=== PATIENT | male | born 1955 | race African-American/Black ===

== ENCOUNTER 2016-04-28 23:24 | Inpatient (IN) | payer MEDICARE, MEDICAID ==
[~2016-04-28] VITALS: Ht 185.4 cm; Wt 99.2 kg
[~2016-04-28 23:24] MED LIST: 1-ME1LIQ PO; HYDR-3533 PO
[2016-04-28] MEDS ORDERED: ASPIRIN 81 MG CHEW TAB PO ONE (23:45)
[2016-04-28] MEDS ORDERED: SODIUM CHLORIDE 0.9% FLUSH 5 ML FLUSH IVF PRN (23:45)
--- NOTE | 2016-04-28 23:46 | PD ---
HPI Chief Complaint: chest pain Time Seen by Provider: 23:41 Travel History International Travel<30 days: No Contact w/Intl Traveler<30days: No Traveled to known affect area: No History of Present Illness HPI 60-year-old male presents to the emergency department by private transportation the care of his spouse for evaluation of left-sided chest pain with radiation into the left shoulder since 1 PM today. Patient was seen by his primary care provider earlier in the day because of dental pain and was doing a prescription for Naprosyn. Patient had ongoing discomfort of the tooth and took aspirin around 9 PM. Patient is unable to identify specific exacerbating or alleviating factors for his dental pain or for his chest pain. Patient states that he thinks she exercised too much yesterday because his chest wall is mildly tender to palpation. Patient's had no fever chills. Patient does have history of hypertension. Patient denies personal history of tobacco use dyslipidemia or diabetes. Patient rates pain 6/10 in intensity. Patient's had no associated referred neck jaw back arm or abdomen pain also no associated shortness of breath sweats nausea or vomiting. Patient denies any laboratory pain or swelling. No personal history or family history of clotting disorder. No recent long distance travel protracted bedrest her surgical procedure. Patient has had chest pain the past but states not the same. No report of previous cardiac evaluation with stress test or cardiac catheterization. Patient states because of persistent discomfort he decided to come and get checked out. PFSH Past Medical History Narrative Medical Hypertension immunizations current no tobacco use nursing notes reviewed Cardiovascular Problems: Yes Diminished Hearing: No Hypertension: Yes Immunizations Current: Yes Social History Alcohol Use: No Tobacco Use: No (QUIT 2003) Substance Use: No Allergies-Medications (Allergen,Severity, Reaction): Coded Allergies: Shellfish (Verified Allergy, Severe, Anaphylaxis, 04/29/16) Reported Meds & Prescriptions Reported Meds & Active Scripts Active Reported Goodys Extra Strength Powder (Bhxhqnp-Wgmttiorjjydx-Tgjhfqmr Powder) 260-520- 32.5 Mg Powderpack 1 Pkt PO DAILY PRN Review of Systems Except as stated in HPI: all other systems reviewed are Neg General / Constitutional: No: Fever, Chills Eyes: No: Visual changes HENT: Positive: Dental Difficulties Cardiovascular: Positive: Chest Pain or Discomfort, No: Diaphoresis, Syncope Respiratory: No: Cough, Shortness of Breath, Wheezing Gastrointestinal: No: Nausea, Vomiting, Abdominal Pain Genitourinary: No: Flank Pain Musculoskeletal: No: Myalgias, Arthralgias Neurologic: No: Weakness Psychiatric: No: Anxiety Endocrine: No: Heat Intolerance Hematologic/Lymphatic: No: Easy Bruising Physical Exam Narrative GENERAL: Well-developed well-nourished male in no acute distress no respiratory distress SKIN: Warm and dry. HEAD: Atraumatic. Normocephalic. EYES: Pupils equal and round. No scleral icterus. No injection or drainage. ENT: No nasal bleeding or discharge. Mucous membranes pink and moist. #9 dentition with erosion of enamel and dental Jovita without gingival edema or fluctuance. Airway is patent. NECK: Trachea midline. No JVD. Supple, no meningismus. CARDIOVASCULAR: Regular rate and rhythm. Chest wall: Tender to palpation over the left anterior chest wall reproduces pain of presentation. RESPIRATORY: No accessory muscle use. Clear to auscultation. Breath sounds equal bilaterally. GASTROINTESTINAL: Abdomen soft, non-tender, nondistended. Hepatic and splenic margins not palpable. MUSCULOSKELETAL: Extremities without clubbing, cyanosis, or edema. No obvious deformities. Bilateral radial and dorsalis pedis pulses 2+ to palpation. NEUROLOGICAL: Awake and alert. No obvious cranial nerve deficits. Motor grossly within normal limits. Five out of 5 muscle strength in the arms and legs. Normal speech. PSYCHIATRIC: Appropriate mood and affect; insight and judgment normal. Data Data Last Documented VS Vital Signs Date Time Temp Pulse Resp B/P Pulse Ox O2 Delivery O2 Flow Rate FiO2 04/29/16 00:04 61 18 98 Room Air 04/28/16 23:59 98.4 168/81 Orders Electrocardiogram (04/28/16 23:41) Basic Metabolic Panel (Bmp) (04/28/16 23:41) Ckmb (Isoenzyme) Profile (04/28/16 23:41) Complete Blood Count With Diff (04/28/16 23:41) Magnesium (Mg) (04/28/16 23:41) Prothrombin Time / Inr (Pt) (04/28/16 23:41) Act Partial Throm Time (Ptt) (04/28/16 23:41) Troponin I (04/28/16 23:41) Chest, Single Ap (04/28/16 23:41) Ecg Monitoring (04/28/16 23:41) Bilateral Bp Monitoring (04/28/16 23:41) Iv Access Insert/Monitor (04/28/16 23:41) Oximetry (04/28/16 23:41) Oxygen Administration (04/28/16 23:41) Aspirin Chew (Aspirin Chew) (04/28/16 23:45) Sodium Chloride 0.9% Flush (Ns Flush) (04/28/16 23:45) Nitroglycerin Sl (Nitrostat Sl) (04/28/16 23:45) Sodium Chlor 0.9% 1000 Ml Inj (Ns 1000 M (04/28/16 23:45) CKMB (04/28/16 23:55) CKMB% (04/28/16 23:55) Sodium Chlor 0.9% 1000 Ml Inj (Ns 1000 M (04/29/16 00:45) Urinalysis - C+S If Indicated (04/29/16 00:34) Potassium Chloride (Kcl) (04/29/16 00:45) Acetaminophen (Tylenol) (04/29/16 01:00) Ondansetron Inj (Zofran Inj) (04/29/16 01:00) Morphine Inj (Morphine Inj) (04/29/16 01:00) Admit Order (Ed Use Only) (04/29/16 ) ^ Saline Lock (04/29/16 01:10) Resp Oxygen Remy C Titrat 1-4 L (04/29/16 ) ^ Notify Dr: Other (04/29/16 01:10) Sodium Chloride 0.9% Flush (Ns Flush) (04/29/16 09:00) Sodium Chloride 0.9% Flush (Ns Flush) (04/29/16 01:15) Place In Observation (04/29/16 ) Vital Signs (Adult) Q4H (04/29/16 01:09) Activity Oob With Assistance (04/29/16 01:09) Flour Worker / Telemetry .CONTINUOUS (04/29/16 01:09) Diet Heart Healthy (04/29/16 Breakfast) Sodium Chloride 0.9% Flush (Ns Flush) (04/29/16 01:15) Sodium Chloride 0.9% Flush (Ns Flush) (04/29/16 09:00) Creatine Kinase (Cpk) (04/29/16 06:00) Creatine Kinase (Cpk) (04/29/16 12:00) Troponin I (04/29/16 06:00) Troponin I (04/29/16 12:00) Electrocardiogram (04/29/16 06:00) Electrocardiogram (04/29/16 12:00) Naloxone Inj (Narcan Inj) (04/29/16 01:15) Labs Laboratory Tests Test 04/28/16 04/29/16 23:55 00:40 White Blood Count 5.6 TH/MM3 Red Blood Count 4.53 MIL/MM3 Hemoglobin 13.0 GM/DL Hematocrit 39.4 % Mean Corpuscular Volume 87.1 FL Mean Corpuscular Hemoglobin 28.8 PG Mean Corpuscular Hemoglobin 33.0 % Concent Red Cell Distribution Width 13.4 % Platelet Count 294 TH/MM3 Mean Platelet Volume 7.0 FL Neutrophils (%) (Auto) 35.1 % Lymphocytes (%) (Auto) 48.8 % Monocytes (%) (Auto) 9.6 % Eosinophils (%) (Auto) 5.7 % Basophils (%) (Auto) 0.8 % Neutrophils # (Auto) 1.9 TH/MM3 Lymphocytes # (Auto) 2.9 TH/MM3 Monocytes # (Auto) 0.5 TH/MM3 Eosinophils # (Auto) 0.3 TH/MM3 Basophils # (Auto) 0.0 TH/MM3 CBC Comment DIFF FINAL Differential Comment Prothrombin Time 11.9 SEC Prothromb Time International 1.1 RATIO Ratio Activated Partial 30.6 SEC Thromboplast Time Sodium Level 142 MEQ/L Potassium Level 3.2 MEQ/L Chloride Level 104 MEQ/L Carbon Dioxide Level 30.9 MEQ/L Anion Gap 7 MEQ/L Blood Urea Nitrogen 14 MG/DL Creatinine 1.20 MG/DL Estimat Glomerular Filtration 75 ML/MIN Rate Random Glucose 97 MG/DL Calcium Level 8.7 MG/DL Magnesium Level 2.2 MG/DL Total Creatine Kinase 1348 U/L Creatine Kinase MB 6.1 NG/ML Creatine Kinase MB % 0.5 % Troponin I LESS THAN 0.02 NG/ML Urine Color STRAW Urine Turbidity CLEAR Urine pH 5.5 Urine Specific [place] 1.006 Urine Protein NEG mg/dL Urine Glucose (UA) NEG mg/dL Urine Ketones NEG mg/dL Urine Occult Blood NEG Urine Nitrite NEG Urine Bilirubin NEG Urine Leukocyte Esterase NEG Urine RBC 0-2 /hpf Urine WBC 0-2 /hpf Urine Squamous Epithelial 0-5 /hpf Cells Urine Bacteria NONE /hpf Microscopic Urinalysis Comment CULT NOT INDICATED MDM Medical Decision Making Medical Screen Exam Complete: Yes Emergency Medical Condition: Yes Medical Record Reviewed: Yes Interpretation(s) EKG: sinus bradycardia rate [address] elevation or injury pattern change noted QS septally in V1 V2 age-indeterminate ck: 1348, elevated troponin I: less than 0.02, not elevated bmp: hypokalemia; wnl bun/cr cbc; lymphocytosis cxr: cardiomegaly ua: wnl Last Impressions Chest X-Ray 04/28/16 2341 Signed Impressions: Service Date/Time: Thursday, April 28, 2016 23:59 - CONCLUSION: Cardiomegaly. No acute cardiopulmonary disease. 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 EKG performed which reveals no acute ST elevation or injury pattern Patient noted some improvement of symptoms after sublingual nitroglycerin; although discomfort persists IV fluids administered; troponin I less than 0.02, not elevated however total CK is elevated at 1348 concerning for rhabdomyolysis CK-MB percent 0.5% not elevated; patient identified to have hypokalemia potassium given his oral replacement Patient's case discussed with on-call medicine for observation admission for chest pain for serial cardiac enzymes in view of cardiac risk factors male, age 60, hypertension as well as further evaluation of with serial CK; presently urinalysis is normal without evidence of blood without rbc's deferred urine myoglobin check. Patient aware plan for observation admission. Physician Communication Physician Communication discussed with Dr Posada --obs to her service Diagnosis Primary Impression: Chest pain Qualified Code: R07.89 - Other chest pain Additional Impressions: Rhabdomyolysis Qualified Code: M62.82 - Non-traumatic rhabdomyolysis Hypokalemia Dentalgia Carmelita Fischer MD Apr 28, 2016 23:46
[2016-04-28 23:59] VITALS: BP 168/81; PULSE 61; RESP 18; TEMP 98.4; O2SAT 98
[2016-04-29] VITALS (14 sets, daily range): BP systolic 130–167; BP diastolic 70–96; PULSE 53–61; RESP 16–20; TEMP 96–98.3; O2SAT 92–96
[2016-04-29 00:04] LABS: AUTOMATED NEUTROPHIL # 1.9 TH/MM3 (1.8-7.7); BASOPHIL % 0.8 % (0.0-2.0); EOSINOPHIL # 0.3 TH/MM3 (0-0.4); EOSINOPHIL % 5.7 % (0.0-4.0); HEMATOCRIT 39.4 % (39.0-51.0); LYMPH % 48.8 % (9.0-44.0); LYMPHOCYTE # 2.9 TH/MM3 (1.0-4.8); MEAN CELL VOLUME 87.1 FL (80.0-100.0); MEAN CORPUSCULAR HEMOGLOBIN 28.8 PG (27.0-34.0); MONO % 9.6 % (0.0-8.0); NEUT % 35.1 % (16.0-70.0); PLATELET COUNT 294 TH/MM3 (150-450); RED BLOOD COUNT 4.53 MIL/MM3 (4.50-5.90); RED CELL DISTRIBUTION WIDTH 13.4 % (11.6-17.2); WHITE BLOOD COUNT 5.6 TH/MM3 (4.0-11.0)
[2016-04-29 00:05] LABS: HEMO FLAGS DIFF FINAL
[2016-04-29] MEDS ORDERED: ASPI1POW6 PO (00:09)
--- NOTE | 2016-04-29 00:10 | RADHPO ---
EXAM DATE/TIME: 04/28/2016 23:59 [facility] COMPARISON: CHEST SINGLE AP, January 08, 2016, 13:13. INDICATIONS : Chest pain. MEDICAL HISTORY : None. SURGICAL HISTORY : None. ENCOUNTER: Initial ACUITY: 1 day PAIN SCORE: 7/10 LOCATION: Bilateral chest FINDINGS: The cardiac silhouette is enlarged in transverse diameter. The lungs are free of acute parenchymal op acity. No effusions are identified. Osseous structures are intact. CONCLUSION: Cardiomegaly. No acute cardiopulmonary disease. Michael Eddy MD on April 29, 2016 at 0:08 Board Certified Radiologist. This report was verified electronically.
[2016-04-29 00:11] LABS: CHLORIDE 104 MEQ/L (98-107); POTASSIUM 3.2 MEQ/L (3.5-5.1); SODIUM (NA) 142 MEQ/L (136-145)
[2016-04-29 00:14] LABS: ANION GAP 7 MEQ/L (5-15); BICARBONATE 30.9 MEQ/L (21.0-32.0); BLOOD UREA NITROGEN 14 MG/DL (7-18); MAGNESIUM 2.2 MG/DL (1.5-2.5)
[2016-04-29 00:16] LABS: APTT (PATIENT) 30.6 SEC (24.3-30.1); INTERNATIONAL NORMALIZED RATIO 1.1 RATIO; PROTHROMBIN TIME - PATIENT 11.9 SEC (9.8-11.6)
[2016-04-29 00:17] LABS: GLOMERULAR FILTRATION RATE 75 ML/MIN (>89)
[2016-04-29] MEDS: SODIUM CHLOR 0.9% 1000 ML INJ 1,000 ML IV SCH ×2 (00:24→02:00)
[2016-04-29] MEDS: NITROGLYCERIN 0.4 MG SL 25 TABS/BTL SL SCH ×3 (00:24→00:45)
[2016-04-29 00:32] LABS: CREATINE KINASE 1348 U/L (39-308)
[2016-04-29 00:44] LABS: CKMB 6.1 NG/ML (0.5-3.6)
[2016-04-29] MEDS ORDERED: POTASSIUM CHLORIDE 20 MEQ CONTROLLED RELEASE TAB PO ONE (00:45)
[2016-04-29] MEDS ORDERED: SODIUM CHLOR 0.9% 1000 ML INJ 1,000 ML IV ONE (00:45)
[2016-04-29 00:58] LABS: BLOOD, URINE NEG (NEG); GLUCOSE,URINE NEG (NEG); KETONE, URINE NEG (NEG); NITRITE,URINE NEG (NEG); PH, URINE 5.5 (5.0-8.5)
[2016-04-29] MEDS ORDERED: ACETAMINOPHEN 325 MG TAB PO ONE (01:00)
[2016-04-29] MEDS ORDERED: ONDANSETRON HCL 4 MG/2 ML VIAL IV PUSH ONE (01:00)
[2016-04-29] MEDS ORDERED: MORPHINE SULFATE 4 MG/ML INJ IV PUSH ONE ×2 (01:00→05:45)
[2016-04-29 01:09] LABS: COMMENT (UR) CULT NOT INDICATED; CULTURE IF INDICATED CULT NOT INDICATED; RBC, URINE 0-2 /hpf (0-3); SQUAMOUS EPITHELIAL CELL URINE 0-5 /hpf (0-5); URINE COLOR STRAW (YELLW/STRAW); WBC, URINE 0-2 /hpf (0-5)
[2016-04-29] MEDS ORDERED: NALOXONE HCL 0.4 MG/ML AMP IV PRN (01:15)
[2016-04-29] MEDS ORDERED: SODIUM CHLORIDE 0.9% FLUSH 5 ML FLUSH FLUSH PRN (01:15)
[2016-04-29] MEDS ORDERED: SODIUM CHLORIDE 0.9% FLUSH 5 ML FLUSH IVF PRN (01:15)
[2016-04-29 07:54] LABS: CREATINE KINASE 1079 U/L (39-308)
[2016-04-29 08:07] LABS: CKMB 4.8 NG/ML (0.5-3.6)
[2016-04-29] MEDS: SODIUM CHLORIDE 0.9% FLUSH 5 ML FLUSH FLUSH SCH ×2 (08:21→19:59)
[2016-04-29] MEDS ORDERED: SODIUM CHLORIDE 0.9% FLUSH 5 ML FLUSH IVF SCH (09:00)
--- NOTE | 2016-04-29 11:39 | HHI.HP ---
[facility] Service [place] [facility] Primary Care Physician Zach Montemayor MD Admission Diagnosis chest pain; rhabdomyolysis Diagnoses: (1) Rhabdomyolysis Diagnosis: Principal (2) Hypokalemia Diagnosis: Principal (3) Chest discomfort Diagnosis: Principal (4) Hypertension Diagnosis: Secondary Chief Complaint: Chest soreness Travel History International Travel<30 Days: No Contact w/Intl Traveler <30 Da: No Traveled to Known Affected Are: No History of Present Illness 60-year-old male with known history of hypertension, history of prostate cancer who presented to hospital because of chest discomfort, muscle soreness. Patient states that he went to the gym on and did upper body workout. Patient states that he overdid it and lifted too much in 1 day. He has not been going to the gym as frequent as he did so he decided to get a full workout in 1 day. He states that day after he started developing soreness in his chest , arms. The pain progressively got worse and last night he noticed his muscles are twitching in his chest and he got concerned so he came to the hospital for evaluation. Patient denies any radiation of pain to the neck, back, shoulder, arms. Denies any nausea, vomiting, diaphoresis, shortness of breath. Patient denies any previous cardiac workup. Does have history of hypertension and he takes a diuretic. Patient states that he still has muscle soreness in his chest , arms. Whenever he strains at his arms he does get a pulling sensation in his chest. Patient had workup done emergency department found to have rhabdomyolysis. Is recommended patient be observed in the hospital for further evaluation and management Review of Systems Constitutional: DENIES: Diaphoretic episodes, Fatigue, Fever, Weight gain, Weight loss, Chills, Dizziness, Change in appetite, Night Sweats Eyes: DENIES: Blurred vision, Diplopia, Eye inflammation, Eye pain, Vision loss , Double Vision Ears, nose, mouth, throat: DENIES: Vertigo, Nasal discharge, Throat pain, Ear Pain, Running Nose, Sinus Pain Respiratory: DENIES: Apneas, Cough, Snoring, Wheezing, Hemoptysis, Sputum production, Shortness of breath Cardiovascular: COMPLAINS OF: Chest pain, DENIES: Palpitations, Syncope, Dyspnea on Exertion, Lower Extremity Edema, Orthopnea Gastrointestinal: DENIES: Abdominal pain, Black stools, Bloody stools, Constipation, Diarrhea, Nausea, Vomiting, Difficulty Swallowing, Anorexia Musculoskeletal: COMPLAINS OF: Stiffness Neurologic: DENIES: Abnormal gait, Headache, Localized weakness, Paresthesias, Speech Problems, Tremor, Poor Balance Past Family Social History Past Medical History Hypertension History of prostate cancer Past Surgical History Prostate seed implantation Right femoral fracture repair with jani placement Left forearm fracture repair Reported Medications Reported Meds & Active Scripts Active Reported Goodys Extra Strength Powder (Blaaebk-Anlsevlovhcnw-Jgyhltsf Powder) 260-520- 32.5 Mg Powderpack 1 Pkt PO DAILY PRN Allergies: Coded Allergies: Shellfish (Verified Allergy, Severe, Anaphylaxis, 04/29/16) Family History Reviewed and unremarkable. Patient states that his mother is 89 years old and in good health Social History Patient quit smoking 15 years ago, prior to that he smoked one pack every 3 days since he was 16 years old. Patient denies any alcohol or illicit drugs Physical Exam Vital Signs Vital Signs Date Time Temp Pulse Resp B/P Pulse Ox O2 Delivery O2 Flow Rate FiO2 04/29/16 09:09 96.0 57 16 142/81 95 04/29/16 07:30 93 21 04/29/16 04:25 98.3 58 16 162/96 92 04/29/16 02:46 130/70 04/29/16 02:15 93 04/29/16 02:10 96.0 54 18 167/91 93 04/29/16 02:04 57 04/29/16 01:48 59 20 155/84 97 04/29/16 01:25 60 20 158/85 94 Room Air 157/80 04/29/16 00:04 61 18 98 Room Air 04/28/16 23:59 98.4 61 18 168/81 98 Room Air 04/28/16 23:59 98 Room Air Physical Exam GENERAL: Well-developed, well-nourished, in no acute distress. alert and orientated HEENT: Head is normocephalic without any lesions or masses noted. Facial features are symmetric. Eyes: Pupils equal round reactive to light. Extraocular muscles are intact. Conjunctivae were clear. Oropharyngeal: Pharynx without any erythema edema. Tongue is midline without deviation. Buccal mucosa is moist without any masses or lesions NECK: Supple without any masses. Trachea midline no deviation. No JVD, no bruits are appreciated CARDIAC: Regular rhythm, regular rate. S1/S2 are heard. No murmurs gallops or rubs. LUNGS: Clear to auscultation bilaterally. No wheeze, rhonchi or rales. No use of accessory muscles on inspiration or expiration. ABDOMEN: Soft, nontender. Nondistended. Bowel sounds heard in all 4 quadrants. No organomegaly or masses. Negative rebound, negative guarding EXTREMITIES: No edema, pulses are equal bilaterally. No cyanosis or clubbing NEUROLOGY: Mood and affect appear appropriate. Cranial nerves II through XII grossly intact. Muscle strength 5/5 in upper and lower extremities bilaterally. Deep tendon reflexes are 2+ in upper and lower extremities bilaterally. MUSCULOSKELETAL: Patient does have palpable muscle tenderness noted over anterior chest bilaterally, bilateral biceps, bilateral triceps. Laboratory Laboratory Tests Test 04/28/16 04/29/16 04/29/16 23:55 00:40 07:00 White Blood Count 5.6 Red Blood Count 4.53 Hemoglobin 13.0 Hematocrit 39.4 Mean Corpuscular Volume 87.1 Mean Corpuscular Hemoglobin 28.8 Mean Corpuscular Hemoglobin 33.0 Concent Red Cell Distribution Width 13.4 Platelet Count 294 Mean Platelet Volume 7.0 Neutrophils (%) (Auto) 35.1 Lymphocytes (%) (Auto) 48.8 Monocytes (%) (Auto) 9.6 Eosinophils (%) (Auto) 5.7 Basophils (%) (Auto) 0.8 Neutrophils # (Auto) 1.9 Lymphocytes # (Auto) 2.9 Monocytes # (Auto) 0.5 Eosinophils # (Auto) 0.3 Basophils # (Auto) 0.0 CBC Comment DIFF FINAL Differential Comment Prothrombin Time 11.9 Prothromb Time International 1.1 Ratio Activated Partial 30.6 Thromboplast Time Sodium Level 142 Potassium Level 3.2 Chloride Level 104 Carbon Dioxide Level 30.9 Anion Gap 7 Blood Urea Nitrogen 14 Creatinine 1.20 Estimat Glomerular Filtration 75 Rate Random Glucose 97 Calcium Level 8.7 Magnesium Level 2.2 Total Creatine Kinase 1348 1079 Creatine Kinase MB 6.1 4.8 Creatine Kinase MB % 0.5 0.4 Troponin I LESS THAN 0.02 LESS THAN 0.02 Urine Color STRAW Urine Turbidity CLEAR Urine pH 5.5 Urine Specific [place] 1.006 Urine Protein NEG Urine Glucose (UA) NEG Urine Ketones NEG Urine Occult Blood NEG Urine Nitrite NEG Urine Bilirubin NEG Urine Leukocyte Esterase NEG Urine RBC 0-2 Urine WBC 0-2 Urine Squamous Epithelial 0-5 Cells Urine Bacteria NONE Microscopic Urinalysis Comment CULT NOT INDICATED Result Diagram: 04/28/16 2355 04/28/16 2355 Imaging Last Impressions Chest X-Ray 04/28/16 2341 Signed Impressions: Service Date/Time: Thursday, April 28, 2016 23:59 - CONCLUSION: Cardiomegaly. No acute cardiopulmonary disease. Michael Eddy MD Assessment and Plan Assessment and Plan Rhabdomyolysis: Patient presented with muscle soreness in the chest, arms after working out at the gym and overdoing it 2 days ago. Patient continued on IV fluids. Continue monitoring CPK. Chest discomfort: Described as muscle soreness and muscle twitching. Likely secondary to rhabdomyolysis, muscle destruction from working out, hypokalemia. Patient has been ruled out for any acute coronary event. Serial cardiac enzymes have remained negative. Serial EKGs shows sinus bradycardia with first- degree AV block without any changes. Hypertension: Patient's blood pressure borderline elevated. Patient has have bradycardia. Will add Norvasc 5 mg daily. Dental caries: start amoxicillin, see outpatient dentist. --DVT prevention: Low risk, early ambulation Written by Aubrey Ma PA-C, acting as scribe for Dr. Shafer on 04/29/16 at 1430. The documentation accurately reflects the work and decisions performed face-to- face by Dr. Shafer on 04/29/16 at 1430. Discharge Disposition Discharge home in stable condition Activity: ad pete Diet: Healthy heart diet Medication per medication reconciliation sheet. Follow up with primary medical doctor in 1 week Problem Qualifiers (1) Rhabdomyolysis: Qualified Code: M62.82 - Non-traumatic rhabdomyolysis (2) Hypertension: Qualified Code: I15.9 - Secondary hypertension Aubrey Ma Apr 29, 2016 11:39
[2016-04-29 11:52] LABS: CREATINE KINASE 1067 U/L (39-308)
[2016-04-29 12:05] LABS: CKMB 4.7 NG/ML (0.5-3.6)
[2016-04-29] MEDS: traMADol HCL 50 MG TAB PO PRN ×2 (13:55→22:04)
[2016-04-29] MEDS ORDERED: AMOX500C PO (15:04)
[2016-04-29] MEDS ORDERED: AMLO5 PO (15:04)
[2016-04-29 15:51] LABS: CKMB 3.9 NG/ML (0.5-3.6)
[2016-04-29] MEDS ORDERED: ULTR50TA5 PO (15:54)
[2016-04-29] MEDS: amLODIPine BESYLATE 5 MG TAB PO SCH (15:54)
--- NOTE | 2016-04-29 16:52 | EKG ---
Date Performed: 04/29/2016 Time Performed: 07:00:38 PTAGE: 60 years EKG: Sinus bradycardia. Poor R wave progression - probable normal variant Inferior T wave change s are nonspecific Since previous tracing, no significant change noted Borderline ECG PREVIOUS TRACING : 04/28/2016 23.33 DOCTOR: Eusebio Zazueta Interpretating Date/Time 04/29/2016 16:51:54
--- NOTE | 2016-04-29 16:52 | EKG ---
Date Performed: 04/28/2016 Time Performed: 23:33:14 PTAGE: 60 years EKG: Sinus bradycardia Poor intitial anterior forces, which is probably a normal variant. When c ompared to PREVIOUS TRACING , no significant change. Normal ECG except for rate PREVIOUS TRACIN 12.27 DOCTOR: Eusebio Zazueta Interpretating Date/Time 04/29/2016 16:51:28
[2016-04-29] MEDS: NS + KCL 20 MEQ INJ 1,000 ML IV SCH ×3 (17:34→23:59)
[2016-04-29] MEDS: AMOXICILLIN (TRIHYDRATE) 500 MG CAP PO SCH ×2 (17:34→20:00)
[2016-04-30] VITALS (10 sets, daily range): BP systolic 148–180; BP diastolic 70–90; PULSE 55–67; RESP 15–20; TEMP 96.4–97.7; O2SAT 95–98
[2016-04-30] MEDS: NS + KCL 20 MEQ INJ 1,000 ML IV SCH ×2 (06:05→18:30)
[2016-04-30] MEDS: traMADol HCL 50 MG TAB PO PRN (06:08)
[2016-04-30] MEDS: AMOXICILLIN (TRIHYDRATE) 500 MG CAP PO SCH ×4 (08:13→20:16)
[2016-04-30] MEDS: amLODIPine BESYLATE 5 MG TAB PO SCH (08:14)
[2016-04-30] MEDS: SODIUM CHLORIDE 0.9% FLUSH 5 ML FLUSH FLUSH SCH ×2 (09:00→20:16)
[2016-04-30] MEDS ORDERED: PNEUMOCOCCAL POLYVALENT INJ 25 MCG/0.5 ML SYR IM ONE (10:00)
--- NOTE | 2016-04-30 10:32 | HHI.PR ---
Subjective Remarks Patient seen and examined today. Patient denies any new complaints. Patient states that he no longer experiencing any chest pain, but his left arm is sore and he feels his hand is weaker. Objective Vitals Vital Signs Date Time Temp Pulse Resp B/P Pulse Ox O2 Delivery O2 Flow Rate FiO2 04/30/16 09:08 96.4 67 16 180/80 95 04/30/16 08:00 65 04/30/16 07:15 95 21 04/30/16 07:08 20 04/30/16 04:00 97.6 61 18 176/83 95 04/30/16 00:25 97.7 64 18 148/88 97 04/29/16 20:25 97.5 61 20 158/85 96 04/29/16 20:06 59 04/29/16 19:55 95 21 04/29/16 16:00 96.8 55 20 150/83 92 04/29/16 12:00 96.0 53 20 145/79 93 I/O 04/29/16 04/29/16 04/29/16 04/30/16 04/30/16 04/30/16 07:00 15:00 23:00 07:00 15:00 23:00 Intake Total 480 ml 1000 ml 1893 ml 1197 ml Output Total 900 ml 980 ml Balance -420 ml 1000 ml 1893 ml 217 ml Intake Oral 1000 ml IV Total 480 ml 1893 ml 1197 ml Output Urine Total 900 ml 980 ml # Voids 4 2 # Bowel Movements 0 Result Diagram: 04/28/16 2355 04/28/16 2355 Objective Remarks GENERAL: Well-developed, well-nourished, muscular male, in no acute distress. alert and orientated HEENT: Head is normocephalic without any lesions or masses noted. Facial features are symmetric. Eyes: Extraocular muscles are intact. Conjunctivae were clear. NECK: Supple without any masses. Trachea midline no deviation. No JVD CARDIAC: Regular rhythm, regular rate. S1/S2 are heard. No murmurs gallops or rubs. LUNGS: Clear to auscultation bilaterally. No wheeze, rhonchi or rales. No use of accessory muscles on inspiration or expiration. ABDOMEN: Soft, nontender. Nondistended. Bowel sounds heard in all 4 quadrants. No organomegaly or masses. Negative rebound, negative guarding EXTREMITIES: No edema, pulses are equal bilaterally. No cyanosis or clubbing. good radial pulses bilaterally. forearm circumference appears the same b/l. NEUROLOGY: Mood and affect appear appropriate. Cranial nerves II through XII grossly intact. Moving all extremities, speech is clear. credit officer strength equal bilaterally. Urinary Catheter: No Vascular Central Line Catheter: No A/P Assessment and Plan Rhabdomyolysis: Patient presented with muscle soreness in the chest, arms after working out at the gym and "overdoing it" 2 days ago. Patient continued on IV fluids. Continue monitoring CPK. CPK continues to rise, although renal function and UOP are improved. Will continue aggressive IVF hydration until CPK trends down. Monitor renal function. Chest discomfort: Resolved Described as muscle soreness and muscle twitching. Likely secondary to rhabdomyolysis, muscle destruction from working out. Patient has been ruled out for any acute coronary event. Serial cardiac enzymes have remained negative. Serial EKGs shows sinus bradycardia with first- degree AV block without any changes. Hypertension: Patient's blood pressure borderline elevated. Start Procardia XL 30 mg daily Dental caries: Continue amoxicillin, see outpatient dentist. --DVT prevention: Low risk, early ambulation Written by Aubrey Ma PA-C, acting as scribe for Dr. Shafer on 04/30/16 at 1300. The documentation accurately reflects the work and decisions performed face-to- face by Dr. Shafer on 04/30/16 at 1300. Aubrey Ma Apr 30, 2016 10:32 Zenobia Shafer MD Apr 30, 2016 14:11
[2016-04-30] MEDS: NIFEdipine 30 MG SUSTAINED RELEASE TAB PO SCH (13:15)
[2016-04-30] MEDS: ACETAMINOPHEN/HYDROcodone 325 MG/7.5 MG TAB PO PRN ×2 (13:19→18:29)
[2016-04-30 13:23] LABS: CKMB 3.2 NG/ML (0.5-3.6)
--- NOTE | 2016-04-30 14:11 | EKG ---
Date Performed: 04/29/2016 Time Performed: 11:11:12 PTAGE: 60 years EKG: Sinus bradycardia with borderline 1st degree A-V block. Poor intial anterior forces, which is probably normal variant Since previous tracing, no significant change noted Abnormal ECG PREVIOUS TRACING : 04/29/2016 07.00 DOCTOR: Eusebio Zazueta Interpretating Date/Time 04/30/2016 15:37:12
[2016-04-30 19:41] LABS: BLOOD, URINE NEG (NEG); GLUCOSE,URINE NEG (NEG); KETONE, URINE NEG (NEG); NITRITE,URINE NEG (NEG)
[2016-04-30 19:53] LABS: URINE COLOR STRAW (YELLW/STRAW)
[2016-04-30 19:56] LABS: COMMENT (UR) CULT NOT INDICATED; CULTURE IF INDICATED CULT NOT INDICATED; SQUAMOUS EPITHELIAL CELL URINE 0-5 /hpf (0-5)
[2016-04-30] MEDS: TEMAZEPAM 15 MG CAP PO PRN (20:16)
[2016-05-01] VITALS (7 sets, daily range): BP systolic 146–164; BP diastolic 82–88; PULSE 55–71; RESP 18–20; TEMP 96.8–97.8; O2SAT 95–98
[2016-05-01] MEDS: ACETAMINOPHEN/HYDROcodone 325 MG/7.5 MG TAB PO PRN ×4 (00:31→18:14)
[2016-05-01] MEDS: NS + KCL 20 MEQ INJ 1,000 ML IV SCH ×4 (00:46→23:13)
[2016-05-01 06:47] LABS: POTASSIUM 3.9 MEQ/L (3.5-5.1)
[2016-05-01 06:52] LABS: BICARBONATE 26.3 MEQ/L (21.0-32.0)
[2016-05-01 07:26] LABS: CKMB 2.9 NG/ML (0.5-3.6)
[2016-05-01] MEDS: NIFEdipine 30 MG SUSTAINED RELEASE TAB PO SCH (08:09)
[2016-05-01] MEDS: AMOXICILLIN (TRIHYDRATE) 500 MG CAP PO SCH ×4 (08:09→23:14)
[2016-05-01] MEDS: SODIUM CHLORIDE 0.9% FLUSH 5 ML FLUSH FLUSH SCH ×2 (08:10→21:00)
--- NOTE | 2016-05-01 08:29 | HHI.PR ---
Subjective Remarks Patient seen and examined today with Dr. Shafer. Patient states that he is feeling better. Minimal soreness in his triceps. Objective Vitals Vital Signs Date Time Temp Pulse Resp B/P Pulse Ox O2 Delivery O2 Flow Rate FiO2 05/01/16 04:00 97.8 63 20 153/82 98 05/01/16 00:00 97.7 71 20 157/83 98 04/30/16 23:00 95 21 04/30/16 20:00 97.7 59 20 155/85 98 04/30/16 19:50 55 04/30/16 18:44 97.6 60 18 160/70 97 04/30/16 14:19 20 04/30/16 13:00 97.7 64 15 180/90 98 04/30/16 09:08 96.4 67 16 180/80 95 I/O 04/30/16 04/30/16 04/30/16 05/01/16 05/01/16 05/01/16 07:00 15:00 23:00 07:00 15:00 23:00 Intake Total 1197 ml 3777 ml 1329 ml Output Total 980 ml 1600 ml Balance 217 ml 3777 ml -271 ml Intake Oral 240 ml 60 ml IV Total 1197 ml 3537 ml 1269 ml Output Urine Total 980 ml 1600 ml # Voids 2 8 4 # Bowel Movements 0 0 Result Diagram: 04/28/16 2355 05/01/16 0625 Objective Remarks GENERAL: Well-developed, well-nourished, in no acute distress. alert and orientated HEENT: Head is normocephalic without any lesions or masses noted. Facial features are symmetric. Eyes: Extraocular muscles are intact. Conjunctivae were clear. NECK: Supple without any masses. Trachea midline no deviation. No JVD CARDIAC: Regular rhythm, regular rate. S1/S2 are heard. No murmurs gallops or rubs. LUNGS: Clear to auscultation bilaterally. No wheeze, rhonchi or rales. No use of accessory muscles on inspiration or expiration. ABDOMEN: Soft, nontender. Nondistended. Bowel sounds heard in all 4 quadrants. No organomegaly or masses. Negative rebound, negative guarding EXTREMITIES: No edema, pulses are equal bilaterally. No cyanosis or clubbing NEUROLOGY: Mood and affect appear appropriate. Cranial nerves II through XII grossly intact. Moving all extremities, speech is clear Urinary Catheter: No Vascular Central Line Catheter: No A/P Assessment and Plan Rhabdomyolysis: Patient presented with muscle soreness in the chest, arms after working out at the gym and overdoing it 2 days ago. Patient continued on IV fluids. CPK still on the rise. Continue monitor CPK. Urine is clear. Will give lasix IV x 1, repeat total CK in afternoon. Patient has only mild soreness in right tricep and right elbow. He is not on statin. Chest discomfort: Resolved Described as muscle soreness and muscle twitching. Likely secondary to rhabdomyolysis, muscle destruction from working out, hypokalemia. Patient has been ruled out for any acute coronary event. Serial cardiac enzymes have remained negative. Serial EKGs shows sinus bradycardia with first-degree AV block without any changes. Hypertension: Patient's blood pressure borderline elevated. Procardia XL 30 mg daily. He takes HCTZ 25 mg daily at home. Dental caries: Continue amoxicillin, see outpatient dentist. --DVT prevention: Low risk, early ambulation Written by Aubrey Ma PA-C, acting as scribe for Dr. Shafer on 05/01/16 at . The documentation accurately reflects the work and decisions performed face-to- face by Dr. Shafer on 05/01/16 at . Aubrey Ma May 01, 2016 08:28 Zenobia Shafer MD May 01, 2016 11:09
[2016-05-01] MEDS ORDERED: FUROSEMIDE 40 MG/4 ML VIAL IV PUSH ONE (11:15)
[2016-05-01 14:51] LABS: CKMB 2.9 NG/ML (0.5-3.6)
[2016-05-01] MEDS: TEMAZEPAM 15 MG CAP PO PRN (23:14)
[2016-05-02] VITALS: BP 153/83; PULSE 58; RESP 20; TEMP 97.4; O2SAT 98
[2016-05-02] MEDS: ACETAMINOPHEN/HYDROcodone 325 MG/7.5 MG TAB PO PRN ×2 (00:20→05:59)
[2016-05-02] MEDS: NS + KCL 20 MEQ INJ 1,000 ML IV SCH (05:58)
[2016-05-02] MEDS: SODIUM CHLORIDE 0.9% FLUSH 5 ML FLUSH FLUSH SCH (07:45)
[2016-05-02] MEDS: NIFEdipine 30 MG SUSTAINED RELEASE TAB PO SCH (07:45)
[2016-05-02] MEDS: AMOXICILLIN (TRIHYDRATE) 500 MG CAP PO SCH (07:45)
[2016-05-02 07:53] LABS: CKMB 1.8 NG/ML (0.5-3.6)
[2016-05-02 08:00] VITALS: BP 165/76; PULSE 58; RESP 18; TEMP 97.3; O2SAT 98
[2016-05-02] MEDS ORDERED: HYDR25TA5 PO (11:04)
--- NOTE | 2016-05-02 11:19 | HHI.DS ---
cc: Zach Montemayor MD Discharge Summary Admission Date Apr 29, 2016 at 01:12 Discharge Date: May 02, 2016 Admitting Diagnosis chest pain; rhabdomyolysis (1) Rhabdomyolysis ICD Code: M62.82 Diagnosis: Principal (2) Hypokalemia ICD Code: E87.6 Diagnosis: Principal (3) Chest discomfort ICD Code: R07.89 Diagnosis: Principal (4) Hypertension ICD Code: I10 Diagnosis: Secondary Procedures None Brief History - From Admission 60-year-old male with known history of hypertension, history of prostate cancer who presented to hospital because of chest discomfort, muscle soreness. Patient states that he went to the gym on and did upper body workout. Patient states that he overdid it and lifted too much in 1 day. He has not been going to the gym as frequent as he did so he decided to get a full workout in 1 day. He states that day after he started developing soreness in his chest , arms. The pain progressively got worse and last night he noticed his muscles are twitching in his chest and he got concerned so he came to the hospital for evaluation. Patient denies any radiation of pain to the neck, back, shoulder, arms. Denies any nausea, vomiting, diaphoresis, shortness of breath. Patient denies any previous cardiac workup. Does have history of hypertension and he takes a diuretic. Patient states that he still has muscle soreness in his chest , arms. Whenever he strains at his arms he does get a pulling sensation in his chest. Patient had workup done emergency department found to have rhabdomyolysis. Is recommended patient be observed in the hospital for further evaluation and management CBC/BMP: 04/28/16 2355 05/02/16 0630 Significant Findings Laboratory Tests Test 04/29/16 04/30/16 04/30/16 05/01/16 14:40 06:40 12:00 06:25 Total Creatine Kinase 1221 U/L 2734 U/L 3340 U/L 4102 U/L (39-308) (39-308) (39-308) (39-308) Creatine Kinase MB 3.9 NG/ML (0.5-3.6) Chloride Level 110 MEQ/L 108 MEQ/L (98-107) (98-107) Calcium Level 8.2 MG/DL (8.5-10.1) Test 05/01/16 05/02/16 13:51 06:30 Total Creatine Kinase 4058 U/L 3201 U/L (39-308) (39-308) Chloride Level 108 MEQ/L (98-107) Calcium Level 8.4 MG/DL (8.5-10.1) Imaging Last Impressions Chest X-Ray 04/28/16 8261 Signed Impressions: Service Date/Time: Thursday, April 28, 2016 23:59 - CONCLUSION: Cardiomegaly. No acute cardiopulmonary disease. Michael Eddy MD PE at Discharge GENERAL: Well-developed, well-nourished, muscular male, in no acute distress. alert and orientated HEENT: Head is normocephalic without any lesions or masses noted. Facial features are symmetric. Eyes: Extraocular muscles are intact. Conjunctivae were clear. NECK: Supple without any masses. Trachea midline no deviation. No JVD CARDIAC: Regular rhythm, regular rate. S1/S2 are heard. No murmurs gallops or rubs. LUNGS: Clear to auscultation bilaterally. No wheeze, rhonchi or rales. No use of accessory muscles on inspiration or expiration. ABDOMEN: Soft, nontender. Nondistended. Bowel sounds heard in all 4 quadrants. No organomegaly or masses. Negative rebound, negative guarding EXTREMITIES: No edema, pulses are equal bilaterally. No cyanosis or clubbing. good radial pulses bilaterally. forearm circumference appears the same b/l. NEUROLOGY: Mood and affect appear appropriate. Cranial nerves II through XII grossly intact. Moving all extremities, speech is clear. python architect strength equal bilaterally. Pt update on day of discharge Patient doing well. Complains of mild soreness of the left hand and left biceps. Hospital Course The patient was admitted and ruled out with serial cardiac enzymes. Troponin was negative. He was treated with IV fluids. Unfortunately his total creatinine kinase continued to rise. Renal function stayed stable and urine output remained good. He was kept in the hospital on IV fluids until his total CK began to trend down. The patient will be discharged home today. He is instructed to drink plenty of fluids. He will have a repeat total CK in 2 days which I have cc due to his PCP. He is to avoid strenuous activity until cleared by his primary care physician Dr. Montemayor. Pt Condition on Discharge: Stable Discharge Disposition: Discharge Home Discharge Time: <= 30 minutes Discharge Instructions DIET: Follow Instructions for: As Tolerated, No Restrictions Additional Diet Instructions: Push fluids Activities you can perform: Regular-No Restrictions Other Activity Instructions: No strenuous activity until cleared by Dr. Montemayor Follow up Referrals: PCP Follow-up - 1 Week with Zach Montemayor MD New Medications: Hydrochlorothiazide (Hydrochlorothiazide) 25 Mg Tab 25 MG PO DAILY Blood Pressure Management #30 Ref 0 TAB Amoxicillin (Amoxicillin) 500 Mg Cap 500 MG PO QID dental caries Days 5 CAP Tramadol (Ultram) 50 Mg Tab 50 MG PO Q8H PRN PAIN SCALE 5 TO 10 #30 TAB Continued Medications: Gzyccly-Pievtcrbrewgi-Umcjbqky Powder (Goodys Extra Strength Powder) 260-520- 32.5 Mg Powderpack 1 PKT PO DAILY PRN PAIN SCALE 1 TO 10 Zenobia Peña MD May 02, 2016 11:19
== END 2016-05-02 12:04 | disposition home or self-care (01) | DRG 558 ==
LOC: PHED 23:24 → PHEDA 04-29 01:12 → PH3A 04-29 01:41 → OBSVTOIN 04-30 13:13
PROVIDERS: ADMIT Family Medicine; ATTEND Family Medicine
DX: M62.82 Rhabdomyolysis (principal); I11.9 Hypertensive heart disease without heart failure; E87.6 Hypokalemia; K02.9 Dental caries, unspecified; Z85.46 Personal history of malignant neoplasm of prostate; Z87.891 Personal history of nicotine dependence
CPT/HCPCS: 71010; 80048; 81001; 82550; 82552; 83735; 83874; 84484; 85025; 85610; 85730; 90471; 90732; 93005; 96361; 96374; 96375; G0009; G0378; J1940; J2270; J2405; J3480; J7030

== ENCOUNTER 2017-03-07 19:45 | Emergency (ER) | payer MEDICARE, MEDICAID ==
[~2017-03-07] VITALS: Ht 185.4 cm; Wt 92.7 kg
[~2017-03-07 19:45] MED LIST changes: -1-ME1LIQ PO; +AMOX500C PO; +ASPI1POW6 PO; -HYDR-3533 PO; +HYDR25TA5 PO; +TRAM50 PO
[2017-03-07 20:28] VITALS: BP 155/67; PULSE 58; RESP 16; TEMP 97.9; O2SAT 98
[2017-03-07] MEDS ORDERED: AMLO10TA2 PO (20:33)
[2017-03-07] MEDS ORDERED: ACETAMINOPHEN/CODEINE 300 MG/30 MG TAB PO ONE (20:45)
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
--- NOTE | 2017-03-07 21:50 | RADRPT ---
EXAM DATE/TIME: 03/07/2017 20:51 [facility] COMPARISON: No previous studies available for comparison. INDICATIONS : Right hip pain from unknown injury. MEDICAL HISTORY : None. SURGICAL HISTORY : Right femur jani. ENCOUNTER: Initial ACUITY: 1 day PAIN SCORE: 5/10 LOCATION: Right hip. FINDINGS: Previous intramedullary jani and screw fixation of the right femur with bony remodeling in the mid fem oral diaphysis. Hardware appears intact without surrounding lucency. Osseous structures are otherwise intact without evidence for acute bony fracture. Joint spaces are grossly maintained. Soft tissues a re unremarkable. CONCLUSION: 1. No acute fracture or dislocation. Venancio Rock MD on March 07, 2017 at 21:47 Board Certified Radiologist. This report was verified electronically.
--- NOTE | 2017-03-07 21:53 | RADRPT ---
EXAM DATE/TIME: 03/07/2017 20:51 [facility] COMPARISON: CHEST SINGLE AP, April 28, 2016, 23:59. INDICATIONS : Lower back pain from unknown injury. MEDICAL HISTORY : None. SURGICAL HISTORY : Right femur jani. ENCOUNTER: Initial ACUITY: 1 day PAIN SCORE: 5/10 LOCATION: Bilateral lower back. FINDINGS: Apparent compression deformity of T12 vertebral body. Mild inferior endplate compression deformity at L5 which is likely due to Schmorl's node. Remaining vertebral body heights are intact. Sagittal alig nment is maintained. Degenerative changes in the lower lumbar spine most prominently at L4-S1. Soft t issues are grossly unremarkable. CONCLUSION: 1. Apparent T12 compression fracture of unknown chronicity given lack of prior exams. Consider MRI ex amination if patient has pain on palpation of the T12 spinous process or does not have history of russell or trauma. 2. Degenerative spondylosis of the lower lumbar spine. Venancio Rock MD on March 07, 2017 at 21:48 Board Certified Radiologist. This report was verified electronically.
[2017-03-07] MEDS ORDERED: PERC5TAB12 PO (22:34)
== END 2017-03-07 22:43 | disposition home or self-care (01) ==
LOC: PHEFT 19:45
DX: M48.54XA Collapsed vertebra, not elsewhere classified, thoracic region, initial encounter for fracture (principal); M47.9 Spondylosis, unspecified; I10 Essential (primary) hypertension; Z79.899 Other long term (current) drug therapy
CPT/HCPCS: 72100; 73502; 99284

== ENCOUNTER 2017-06-01 06:03 | Day surgery (SDC) | payer MEDICARE, MEDICAID ==
[~2017-06-01] VITALS: Ht 185.4 cm; Wt 86.8 kg
[~2017-06-01 06:03] MED LIST changes: +AMLO10TA2 PO; -AMOX500C PO; -ASPI1POW6 PO; -HYDR25TA5 PO; +PERC5TAB12 PO; -TRAM50 PO
[2017-06-01] MEDS ORDERED: ceFAZolin 2 GM PREMIX 50 ML - implanted port/tunneled catheter insertion IV SCH (06:45)
[2017-06-01] MEDS ORDERED: VANCOMYCIN 1000 MG/NS 250 ML - implanted port/tunneled catheter IV SCH ×2 (06:45)
[2017-06-01] MEDS ORDERED: CHLORHEXIDINE GLUCONATE 2 % 1 PACK (2 CLOTHS) TOPICAL SCH (06:45)
[2017-06-01] MEDS ORDERED: POVIDONE IODINE 5% (ANTISEPSIS KIT) 4 APPLICATIONS EACH NARE SCH (06:45)
[2017-06-01] MEDS ORDERED: MORP60TA61 PO (06:46)
[2017-06-01] MEDS ORDERED: PROC10TA PO (06:46)
[2017-06-01] MEDS ORDERED: ALPR0.25 PO (06:46)
[2017-06-01] MEDS ORDERED: MORP-44 PO (06:46)
[2017-06-01] MEDS ORDERED: FENT75DI T-DERMAL (06:46)
[2017-06-01] MEDS ORDERED: DOXA1TAB34 PO (06:46)
[2017-06-01] MEDS ORDERED: fentaNYL CITRATE 250 MCG/5 ML AMP ONE (07:45)
[2017-06-01] MEDS ORDERED: MIDAZOLAM HCL 2 MG/2 ML VIAL ONE (07:45)
[2017-06-01] MEDS ORDERED: LIDOCAINE 1%/EPINEPHrine 1:100,000 SOLN 30 ML VIAL ONE (07:54)
--- NOTE | 2017-06-01 08:46 | PD.RAD ---
Post Procedure Progress Note Procedure Date: Jun 01, 2017 Supervising Radiologist: Venancio Rock Proceduralist/Assist: Lj Reyes, RT(R), Treva Odom RT(R) Anesthesia: Conscious Sedation Plan of Activity Patient to Unit: ROPU Patient Condition: Good See PACS Report for procedural detail/treatment Venancio Rock MD Jun 01, 2017 08:46
[2017-06-01 08:50] VITALS: BP 158/74; PULSE 93; RESP 16; TEMP 97.8; O2SAT 92
[2017-06-01 09:00] VITALS: BP 166/87; PULSE 103; RESP 18; O2SAT 94
[2017-06-01 09:15] VITALS: BP 156/76; PULSE 93; RESP 18; O2SAT 94
[2017-06-01 09:30] VITALS: BP 141/75; PULSE 85; RESP 20; O2SAT 93
--- NOTE | 2017-06-01 09:31 | RADRPT ---
EXAM DATE/TIME: 06/01/2017 07:55 [facility] COMPARISON: No previous studies available for comparison. INDICATIONS : Patient presnts with stage 4 lung cancer in need of port placement. MEDICAL HISTORY : Right Hilar Mass Liver Mass METS Bone HX Prostate Cancer SURGICAL HISTORY : ORIF ENCOUNTER: Initial ACUITY: 1 month PAIN SCORE: 0/10 FLUORO TIME: 0.1 minutes IMAGE SERIES: 1 SEDATION TIME: 30 minutes ACCESS: Right internal jugular vein SEDATION: 1.) 2 mg midazolam (Versed) IV 2.) 100 mcg fentanyl (Sublimaze) IV 3.) 20units Lidocaine with epinephrine SC Prophylactic antibiotics were administered with appropriate pre-procedure timing. Vancomycin within 2 hours of procedure, Ancef (or alternative) within 1 hour of procedure. DEVICE: 1. 8 Afghan single lumen [id number] PROCEDURE : 1. Continuous pulse oximetry and EKG monitoring. 2. Intravenous conscious sedation. 3. Ultrasound guidance for venous access. 4. Fluoroscopic guided implantable central venous port placement. The patient was placed supine. The neck was prepped in sterile fashion. Full sterile technique was u sed, including cap, mask, sterile gloves and gown, and a large sterile sheet. Hand hygiene and 2% ch lorhexidine Betadine was utilized per protocol for cutaneous antisepsis with appropriate dry time for site. Sterile gel and sterile probe cover were utilized for ultrasound guidance. The skin and sub cutaneous tissues were infiltrated with local anesthetic solution. Under direct ultrasound guidance, central venous access was accomplished in the targeted vessel. The ultrasound images depicting access guidance were stored and saved to PACS for permanent record. A s ubcutaneous pocket was created using blunt dissection. The port was introduced to the pocket. The c atheter tubing was fed through a subcutaneous tunnel to the venotomy site. The catheter tubing was c ut to a suitable length and then was introduced through a valved Peel-Away sheath and positioned with catheter tubing tip at the cavo-atrial junction level. The pocket incision was closed with subcutic ular Vicryl suture. Steri-Strips were applied. The port was flushed and locked with heparin solutio n per protocol. Sterile dressing was applied to the site. The patient tolerated the procedure well. Conscious sedation was performed with the prescribed dosages and duration as above in the presence of an independent trained radiology nurse to assist in the monitoring of the patient. EKG and oximetry remained stable throughout the procedure. The patient tolerated the procedure well and there were no complications. The patient was sent to post anesthesia recovery in stable condition. CONCLUSION: Uncomplicated ultrasound and fluoroscopic guided implanted central venous port catheter placement as described in detail above. An 8 Afghan Power port was placed. Venancio Rock MD on June 01, 2017 at 9:28 Board Certified Radiologist. This report was verified electronically.
[2017-06-01 10:00] VITALS: BP 148/78; PULSE 85; RESP 20; O2SAT 93
[2017-06-01 10:30] VITALS: BP 145/80; PULSE 83; RESP 20; O2SAT 96
== END 2017-06-01 11:00 | disposition home or self-care (01) ==
LOC: HROP 06:03 → HRIP 06:06 → HROP 11:00
PROVIDERS: ATTEND Internal Medicine Hematology & Oncology
DX: Z45.2 Encounter for adjustment and management of vascular access device (principal); C34.90 Malignant neoplasm of unspecified part of unspecified bronchus or lung; Z85.46 Personal history of malignant neoplasm of prostate; C79.51 Secondary malignant neoplasm of bone; R16.0 Hepatomegaly, not elsewhere classified
CPT/HCPCS: 36561; 76937; 77001; 99152; 99153; C1788; J0690; J1642; J2250; J3010; J3370; J7050

== ENCOUNTER 2017-07-06 08:52 | Emergency (ER) | payer MEDICARE, MEDICAID ==
[~2017-07-06] VITALS: Ht 182.9 cm; Wt 85.0 kg
[~2017-07-06 08:52] MED LIST changes: +ALPR0.25 PO; +DOXA1TAB34 PO; +FENT75DI T-DERMAL; +MORP-44 PO; +MORP60TA61 PO; -PERC5TAB12 PO; +PROC10TA PO
[2017-07-06 08:55] VITALS: BP 158/84; PULSE 69; RESP 18; TEMP 98.2; O2SAT 98
[2017-07-06] MEDS ORDERED: FURO20TA PO (09:10)
[2017-07-06 09:11] VITALS: BP 153/84; PULSE 65; RESP 18; O2SAT 98
--- NOTE | 2017-07-06 09:59 | PD ---
HPI Chief Complaint: GI Complaint Time Seen by Provider: 09:41 Travel History International Travel<30 days: No Contact w/Intl Traveler<30days: No Traveled to known affect area: No History of Present Illness HPI This patient complains of nausea and vomiting. 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 He got his first chemotherapy dose 4 days ago. After that he started having nausea and vomiting. Prior to chemo he did not have that problem. No diarrhea or fever abdominal pain. Symptom severity is moderate. No alleviating factors. Symptoms exacerbated by chemotherapy. He has some generalized weakness. And malaise. PFSH Past Medical History Arthritis: No Autoimmune Disease: No Heart Rhythm Problems: No Cancer: Yes (hx of prostate cancer, bone, lung) Cardiovascular Problems: Yes High Cholesterol: No Chemotherapy: Yes (07/04/17) Chest Pain: No Congestive Heart Failure: No Cerebrovascular Accident: No Diabetes: No Diminished Hearing: No Endocrine: No Genitourinary: No Hepatitis: No Hypertension: Yes Immune Disorder: No Implanted Vascular Access Dvce: Yes Medical other: No Musculoskeletal: Yes (Bone cancer) Neurologic: No Psychiatric: No Reproductive: No Respiratory: No Immunizations Current: Yes Migraines: No Radiation Therapy: No Seizures: No Sickle Cell Disease: No Thyroid Disease: No Past Surgical History Abdominal Surgery: No AICD: No Body Medical Devices: seed implant secondary to prostate cancer Cardiac Surgery: No Ear Surgery: No Eye Surgery: No Genitourinary Surgery: No Gynecologic Surgery: No Joint Replacement: No Oral Surgery: No Pacemaker: No Thoracic Surgery: No Other Surgery: Yes Social History Alcohol Use: No Tobacco Use: No (QUIT 2003) Substance Use: No Allergies-Medications (Allergen,Severity, Reaction): Coded Allergies: shellfish derived (Unverified Allergy, Severe, Anaphylaxis, 07/06/17) Reported Meds & Prescriptions Reported Meds & Active Scripts Active Reported Furosemide 20 Mg Tab 20 Mg PO DAILY Prochlorperazine Maleate 10 Mg Tab 10 Mg PO Q6H PRN Morphabond ER 12 HR (Morphine Sulfate) 60 Mg Tab 60 Mg PO Q12H Morphabond ER 12 HR (Morphine Sulfate) 30 Mg Tab 30 Mg PO Q4HR Doxazosin (Doxazosin Mesylate) 4 Mg Tab 4 Mg PO DAILY Alprazolam 0.25 Mg Tab 0.25 Mg PO TID PRN Amlodipine (Amlodipine Besylate) 10 Mg Tab 10 Mg PO DAILY Review of Systems General / Constitutional: No: Fever Eyes: No: Visual changes HENT: No: Headaches Cardiovascular: No: Chest Pain or Discomfort Respiratory: No: Shortness of Breath Gastrointestinal: Positive: Nausea, Vomiting, No: Abdominal Pain Genitourinary: No: Dysuria Musculoskeletal: Positive: Weakness, No: Pain Skin: No Rash Neurologic: Positive: Weakness Psychiatric: No: Depression Endocrine: No: Polydipsia Hematologic/Lymphatic: No: Easy Bruising Physical Exam Narrative GENERAL: Well-nourished, well-developed patient in no apparent distress. SKIN: Focused skin assessment reveals no rash and nodules. Skin is Warm and dry. HEAD: Atraumatic. Normocephalic. EYES: Pupils equal and round. No scleral icterus. No injection or drainage. ENT: No nasal bleeding or discharge. Mucous membranes pink and moist. NECK: Trachea midline. No JVD. CARDIOVASCULAR: Regular rate and rhythm. No murmur appreciated. RESPIRATORY: No accessory muscle use. Clear to auscultation. Breath sounds equal bilaterally. GASTROINTESTINAL: Abdomen soft, non-tender, nondistended. Hepatic and splenic margins not palpable. MUSCULOSKELETAL: No obvious deformities. No clubbing. No cyanosis. No edema. NEUROLOGICAL: Awake and alert. No obvious cranial nerve deficits. Motor grossly within normal limits. Normal speech. PSYCHIATRIC: Appropriate mood and affect; insight and judgment normal. Data Data Last Documented VS Vital Signs Date Time Temp Pulse Resp B/P (MAP) Pulse Ox O2 Delivery O2 Flow Rate FiO2 07/06/17 09:11 65 18 153/84 (107) 98 Room Air 07/06/17 08:55 98.2 Orders Orders Complete Blood Count With Diff (07/06/17 09:47) Basic Metabolic Panel (Bmp) (07/06/17 09:47) Ondansetron Inj (Zofran Inj) (07/06/17 10:00) Sodium Chloride 0.9% Flush (Ns Flush) (07/06/17 10:00) Promethazine Inj (Phenergan Inj) (07/06/17 10:00) Sodium Chlor 0.9% 1000 Ml Inj (Ns 1000 M (07/06/17 10:00) Labs Laboratory Tests Test 07/06/17 10:45 White Blood Count 2.1 TH/MM3 Red Blood Count 4.15 MIL/MM3 Hemoglobin 12.0 GM/DL Hematocrit 35.4 % Mean Corpuscular Volume 85.4 FL Mean Corpuscular Hemoglobin 28.9 PG Mean Corpuscular Hemoglobin Concent 33.9 % Red Cell Distribution Width 15.9 % Platelet Count 159 TH/MM3 Mean Platelet Volume 6.6 FL Neutrophils (%) (Auto) 72.2 % Lymphocytes (%) (Auto) 18.9 % Monocytes (%) (Auto) 6.7 % Eosinophils (%) (Auto) 1.8 % Basophils (%) (Auto) 0.4 % Neutrophils # (Auto) 1.5 TH/MM3 Lymphocytes # (Auto) 0.4 TH/MM3 Monocytes # (Auto) 0.1 TH/MM3 Eosinophils # (Auto) 0.0 TH/MM3 Basophils # (Auto) 0.0 TH/MM3 CBC Comment DIFF FINAL Differential Comment Blood Urea Nitrogen 10 MG/DL Creatinine 0.57 MG/DL Random Glucose 92 MG/DL Calcium Level 9.3 MG/DL Sodium Level 137 MEQ/L Potassium Level 3.8 MEQ/L Chloride Level 100 MEQ/L Carbon Dioxide Level 28.6 MEQ/L Anion Gap 8 MEQ/L Estimat Glomerular Filtration Rate 177 ML/MIN MDM Medical Decision Making Medical Screen Exam Complete: Yes Emergency Medical Condition: Yes Medical Record Reviewed: Yes Differential Diagnosis Dehydration, chemotherapy side effect, gastroenteritis Narrative Course I have reviewed the patient's electronic medical record. I reviewed his oncology note from June 15 I gave him a liter of normal saline IV bolus and IV Zofran and IM Phenergan Labs sent CBC shows some leukopenia Metabolic studies normal He is now hydrated No vomiting since he has been here Stable for outpatient follow-up Diagnosis Primary Impression: Nausea and vomiting Qualified Codes: R11.2 - Nausea with vomiting, unspecified Additional Impression: Chemotherapy-induced nausea and vomiting Additional Instructions: The patient was advised to follow up with their physician and return if they worsen. I have recommended clear liquids for 24 hours, then gradually advance as tolerated. Med/Other Pt SpecificInfo: Prescription(s) given Disposition: DISCHARGE HOME Condition: Stable Aubrey Edwards MD Jul 06, 2017 09:59
[2017-07-06] MEDS ORDERED: SODIUM CHLORIDE 0.9% FLUSH 10 ML FLUSH IVF PRN (10:00)
[2017-07-06] MEDS ORDERED: PROMETHAZINE INJ 25 MG/ML VIAL IM ONE (10:00)
[2017-07-06] MEDS ORDERED: ONDANSETRON HCL 4 MG/2 ML VIAL IV PUSH ONE (10:00)
[2017-07-06] MEDS ORDERED: SODIUM CHLOR 0.9% 1000 ML INJ 1,000 ML IV ONE (10:00)
[2017-07-06 11:00] LABS: AUTOMATED NEUTROPHIL # 1.5 TH/MM3 (1.8-7.7); BASOPHIL % 0.4 % (0.0-2.0); EOSINOPHIL % 1.8 % (0.0-4.0); HEMATOCRIT 35.4 % (39.0-51.0); LYMPH % 18.9 % (9.0-44.0); LYMPHOCYTE # 0.4 TH/MM3 (1.0-4.8); MEAN CELL VOLUME 85.4 FL (80.0-100.0); MEAN CORPUSCULAR HEMOGLOBIN 28.9 PG (27.0-34.0); MEAN CORPUSCULAR HGB CONC 33.9 % (32.0-36.0); MEAN PLATELET VOLUME 6.6 FL (7.0-11.0); MONO % 6.7 % (0.0-8.0); MONOCYTE # 0.1 TH/MM3 (0-0.9); NEUT % 72.2 % (16.0-70.0); PLATELET COUNT 159 TH/MM3 (150-450); RED BLOOD COUNT 4.15 MIL/MM3 (4.50-5.90); RED CELL DISTRIBUTION WIDTH 15.9 % (11.6-17.2); WHITE BLOOD COUNT 2.1 TH/MM3 (4.0-11.0)
[2017-07-06 11:16] LABS: BICARBONATE 28.6 MEQ/L (21.0-32.0); CALCIUM 9.3 MG/DL (8.5-10.1); CREATININE 0.57 MG/DL (0.60-1.30)
[2017-07-06] MEDS ORDERED: ZOFR4TAB3 SL (13:45)
== END 2017-07-06 14:12 | disposition home or self-care (01) ==
LOC: NEPC 08:52
DX: C34.90 Malignant neoplasm of unspecified part of unspecified bronchus or lung (principal); C79.51 Secondary malignant neoplasm of bone; C78.7 Secondary malignant neoplasm of liver and intrahepatic bile duct; I10 Essential (primary) hypertension; R11.2 Nausea with vomiting, unspecified; T45.1X5A Adverse effect of antineoplastic and immunosuppressive drugs, initial encounter; Z87.891 Personal history of nicotine dependence
CPT/HCPCS: 80048; 85025; 96361; 96372; 96374; 99284; J2405; J2550; J7030